=== PATIENT | male | born 1940 | race Caucasian/White ===

== ENCOUNTER 2017-03-22 07:16 | Outpatient (CLI) | payer MEDICARE ==
[~2017-03-22] VITALS: Ht 177.8 cm; Wt 81.8 kg
--- NOTE | ~2017-03-22 | HEMODYNAMI ---
PATIENT:JASON KO MEDICAL RECORD: [id number] : 38 LOCATION:D.CAT ADMISSION DATE: 03/22/17 Generatedon:03/22/20179:41 Patient name: JASON KO Patient #: [id number] SSN: D OB: 1940 Date of study: 03/22/2017 Page: Of Hemodynamic Procedure Report Patient Data Patient Demographics Procedure consent was obtained First Name: JASON Gender: Male Last Name: MAIKEL : 1940 Patient #: [id number] Age: 76 year(s) Race: Unknown Additional ID: [id number] Contact details Address: [address] [place] [address] State: [place] City: [place] Zip code: [address] Past Medical History Allergies: No known allergies Admission Admission Data Admission Date: 03/22/2017 Admission Time: 7:16 Lab Results Lab Result Date: 03/22/2017 Lab Result Time: 0:00 Biochemistry Name Units Result Min Max Creatinine mg/dl 1.3 --(---*)-- 0.6 1.3 CBC Name Units Result Min Max Hemoglobin g/dl 14.1 --(*---)-- 13.5 17.5 Procedure Procedure Types Cath Procedure Diagnostic Procedure [facility] w/Coronaries Miscellaneous Procedures Moderate Sedation up to 15 minutes Procedure Description Procedure Date Procedure Date: 03/22/2017 Procedure Start Time: 9:14 Procedure End Time: 9:40 Procedure Staff Name Function Jose Cruz Michele MD Performing Physician Robert Collins RT Scrub Clarke Spencer RN Nurse Diana Govea RT Monitor Procedure Data Cath Procedure Fluoroscopy Diagnostic fluoroscopy Total fluoroscopy Time: 2 time: 2 min min Diagnostic fluoroscopy Total fluoroscopy dose: 336 dose: 336 mGy mGy Contrast Material Contrast Material Type Amount (ml) Isovue 300 63 Entry Location Entry Primary Successful Side Size Upsize Upsize Entry Closure Succes sful Closure Location (Fr) 1 (Fr) 2 (Fr) Remarks Device Remarks Radial Right 6 Fr artery Short Femoral Right 5 Fr Exoseal artery Estimated blood loss: 5 ml Diagnostic catheters Device Type Used For End Catheter Placement Cordis 5Fr JL 4.0 Left Coronary Catheter (MP) Angiography Cordis 5Fr 3DRC Catheter Right Coronary (MP) Angiography Cordis 5Fr Pigtail LV Angiography Catheter (MP) Procedure Complications No complications Procedure Medications Medication Administration Route Dosage Oxygen NC 2 l/min Benadryl I.V. 50 mg Lidocaine 2% added to field 20 Heparin Flush Bag added to field 2 bags (1000units/500ml NS) 0.9% NaCl I.V. 100 ml/hr Versed I.V. 1 mg Fentanyl I.V. 50 mcg Versed I.V. 1 mg Fentanyl I.V. 50 mcg Hemodynamics Rest Heart Rate: 70 (bpm) Pressure Samples Time Site Value (mmHg) Purpose Heart Use Rate(bpm) 9:31 LV 109/0,12 EDP 66 9:31 AO 146/74(107) Pullback 74 9:31 LV 145/-1,21 Pullback 74 Gradients Valve Time Site 1 Site 2 Mean SEP/DFP Peak To Heart Use (mmHg) (sec/min) Peak Rate (mmHg) (bpm) Aortic 9:31 LV AO 0 17 0 74 145/-1,21 146/74(107) Calculations Valve P-P Mean Valve Index Valve Source Name Gradient Area Flow (cm2) Aortic 0 0 0 0 Snapshots Pre Cath Intra NCS Post Cath Vital Signs Time Heart Resp SPO2 etCO2 [id number] NIBP (mmHg) Rhythm Pain Sedation Rate (ipm) (%) (mmHg) (mmHg) Status Level (bpm) 8:58:34 57 18 99 0 0 165/83(108) NSR 0 (11) 10(A) , No pain 9:02:56 61 17 100 0 0 165/82(106) NSR 0 (11) 10(A) , No pain 9:07:16 74 16 96 0 0 143/76(96) NSR 0 (11) 10(A) , No pain 9:11:36 65 17 94 0 0 139/73(98) NSR 0 (11) 9(A) , No pain 9:15:50 71 24 95 0 0 135/80(98) NSR 0 (11) 9(A) , No pain 9:20:51 64 17 96 0 0 148/75(100) NSR 0 (11) 9(A) , No pain 9:25:07 68 16 94 0 0 129/72(105) NSR 0 (11) 9(A) , No pain 9:29:19 72 15 96 0 0 145/76(106) NSR 0 (11) 9(A) , No pain 9:33:37 71 16 95 0 0 140/72(98) NSR 0 (11) 10(A) , No pain 9:37:53 62 11 95 0 0 147/79(101) NSR 0 (11) 10(A) , No pain Medications Time Medication Route Dose Verified Delivered Reason Notes Effec tiveness by by 8:57:50 Oxygen NC 2 Jose Cruz Buffie used for l/min Ryne Spencer RN procedure 8:58:01 Benadryl I.V. 50 mg Jose Cruz Buffie used for Ryne Spencer RN procedure 8:58:10 Lidocaine 2% added 20ml Jose Cruz Jose Cruz for local to vial Ryne Michele MD anesthetic field 8:58:15 Heparin Flush added 2 Jose Cruz Jose Cruz used for Bag to bags Ryne Michele MD procedure (1000units/500ml field NS) 8:58:29 0.9% NaCl I.V. 100 Jose Cruz Buffie Per ml/hr Ryne Spencer RN physician 9:07:56 Versed I.V. 1 mg Jose Cruz Buffie for Ryne Spencer RN sedation 9:08:02 Fentanyl I.V. 50 Jose Cruz Buffie for mcg Ryne Spencer RN sedation 9:19:11 Versed I.V. 1 mg Jose Cruz Buffie for Ryne Spencer RN sedation 9:19:14 Fentanyl I.V. 50 Jose Cruz Buffie for mcg Ryne Spencer RN sedation Procedure Log Time Note 8:36:29 Robert Collins RT(R) sent for patient. Start room use. 8:36:30 Time tracking: Regular hours 8:36:34 Plan of Care:Hemodynamics will remain stable., Cardiac rhythm will remain stable., Comfort level will be maintained., Respiratory function will remain adequate., Patient/ family verbilizes understanding of procedure., Procedure tolerated without complication., Recovers from procedure without complications.. 8:47:08 Patient received from Pre/Post Procedure Room to [facility] 1 Alert and oriented. Tansferred to table in Supine position. 8:57:16 Warm blankets applied, and susie hugger turned on for patient comfort. 8:57:16 Correct patient and procedure confirmed by team. 8:57:20 Signed procedure consent form obtained from patient. 8:57:21 ECG and BP/O2 sat monitors applied to patient. 8:57:22 Vital chart was started 8:57:26 Rhythm: sinus rhythm 8:57:28 Full Disclosure recording started 8:57:40 H&P Date Dictated: 03/17/2017 Within 30 days and on chart., H&P Addendum completed by physician on day of procedure. (MUST COMPLETE FOR ALL OUTPATIENTS). 8:57:42 Pre-procedure instructions explained to patient. 8:57:43 Pre-op teaching completed and patient verbalized understanding. 8:57:45 Family in waiting room. 8:57:46 Patient NPO since Midnight. 8:57:50 Oxygen 2 l/min NC was administered by Clarke Spencer RN; used for procedure; 8:58:01 Benadryl 50 mg I.V. was administered by Clarke Spencer RN; used for procedure; 8:58:10 Lidocaine 2% 20ml vial added to field was administered by Jose Cruz Michele MD; for local anesthetic; 8:58:14 Patient allergic to No known allergies 8:58:15 Heparin Flush Bag (1000units/500ml NS) 2 bags added to field was administered by Jose Cruz Michele MD; used for procedure; 8:58:16 Is the patient allergic to Iodine/contrast media? No. 8:58:24 Is patient on blood thinner?No 8:58:29 0.9% NaCl 100 ml/hr I.V. was administered by Clarke Spencer RN; Per physician; 8:58:30 Patient diabetic? No. 8:58:34 Previous problem with sedation/anesthesia? No ? 8:58:35 Snore? No 8:58:36 Sleep apnea? No 8:58:37 Deviated septum? No 8:58:43 Opens mouth fully? Yes 8:58:43 Sticks out tongue? Yes 8:58:45 Airway obstruction? No ? 8:58:48 Dentures? No ? 8:58:51 Pre procedure: right dorsailis pedis pulse 2+ Normal; easily identifiable; not easily obliterated 8:58:53 Patient pain scale 0/10 ?. 8:58:59 IV patent on arrival in left hand with 0.9% NaCl at O. 9:01:03 Lab Result : Creatinine 1.3 mg/dl 9:01:03 Lab Result : Hemoglobin 14.1 g/dl 9:01:07 Lab results completed and on chart. 9:01:14 Right Radial & Right Groin area was prepped with chlora-prep and draped in sterile fashion 9:01:15 Alarms reviewed by R. N. 9::15 Sharps counted by scrub and verified by R.N. 9::25 Use device set Radial Dx 9::26 Acist Syringe opened to sterile field. 9:: Medline Cath Pack opened to sterile field. 9:: Bag Decanter opened to sterile field. 9:: St Barry 260cm J .035 wire opened to sterile field. 9::28 Acist Hand Control opened to sterile field. 9::28 Acist Manifold opened to sterile field. 9::29 Tegaderm 4 x 4 opened to sterile field. 9:02:32 Final Timeout: patient, procedure, and site verified with staff and physician. All members of the team are in agreement. 9:02:35 Right Radial site verified by team. 9:02:41 Physical assessment completed. ASA score P 2 - A patient with mild systemic disease as per Jose Cruz Michele MD. 9:02:44 Sedation plan: IV Moderate Sedation Versed, Fentanyl 9:07:56 Versed 1 mg I.V. was administered by Clarke Spencer RN; for sedation; 9:08:02 Fentanyl 50 mcg I.V. was administered by Clarke Spencer RN; for sedation; 9:08:30 Zero performed for pressure channel P1 9:09:05 Baseline sample Acquired. 9:14:36 Procedure started. 9:14:46 Local anesthetic to right radial artery with Lidocaine 2% by Jose Cruz Michele MD.INITIAL ACCESS ONLY 9:15:31 A 6 Fr Short sheath was inserted into the Right Radial artery 9:18:02 Terumo 5Fr Wadsworth Sheath opened to sterile field. 9:18:11 Use device set Multipack Set 9:18:13 Diagnostic Infinity 5Fr Multipack catheter opened to sterile field. 9:19:11 Versed 1 mg I.V. was administered by Clarke Spencer RN; for sedation; 9:19:14 Fentanyl 50 mcg I.V. was administered by Clarke Spencer RN; for sedation; 9:20:40 Local anesthetic to right femoral artery with Lidocaine 2% by Jose Cruz Michele MD.ADDITIONAL ACCESS 9:21:19 A 5 Fr sheath was inserted into the Right Femoral artery 9:23:17 A Cordis 5Fr JL 4.0 Catheter (MP) was advanced over the wire and used for Left Coronary Angiography. 9:25:28 Catheter removed. 9:26:15 A Cordis 5Fr 3DRC Catheter (MP) was advanced over the wire and used for Right Coronary Angiography. 9:27:29 Catheter removed. 9:29:46 A Cordis 5Fr Pigtail Catheter (MP) was advanced over the wire and used for LV Angiography. 9:31:22 LV gram done using ARAUJO 9:31:23 LV hemodynamics recorded. 9:31:26 Injector settings: Ml/sec: 10, Volume: 20, 9::31 EF : 65 % 9:31:55 Catheter removed. 9:32:51 Cordis 5Fr Exoseal opened to sterile field. 9:33:12 Sheath removed intact; hemostasis achieved with Exoseal to the Right Femoral artery. 9:33:14 Procedure ended.(Physican Out) 9:33:18 Fluoroscopy time 02.00 minutes. 9:33:24 Fluoroscopy dose: 336 mGy 9:33:24 Flurop Dose total: 336 9:33:27 Contrast amount:Isovue 300 63ml. 9:33:29 Sharps counted by scrub and verified by R.N. 9:33:32 Insertion/operative site no bleeding no hematoma. 9:33:36 Post-op/insertion site Right Radial artery dressed using a 4 x 4 and Tegaderm. 9:33:40 Post right femoral artery:stable, clean and dry 9:33:49 Post Procedure Pulses reassessed and unchanged 9:34:19 Post-procedure physical assessment completed. ASA score P 2 - A patient with mild systemic disease as per Jose Cruz Michele MD. 9:34:22 Post procedure rhythm: unchanged. 9:34:24 Estimated blood loss: 5 ml 9:34:26 Post procedure instruction explained to patient.Patient verbalizes understanding. :34:26 Patient needs reinforcement of post procedure teaching. 9:34:38 Procedure type changed to Cath procedure, Diagnostic procedure, LHC, LHC w/Coronaries, Miscellaneous Procedures, Moderate Sedation up to 15 minutes 9:34:53 Merit Prelude 6Fr Radial Sheath (NO COST SUPPLY) opened to sterile field. 9:35:24 Procedure Complication : No complications 9:36:34 See physician's report for complete and final results. 9:38:51 Procedure and supply charges have been captured, reviewed, submitted and are correct. 9:38:52 Vital chart was stopped 9:39:58 Report given to Pre/Post Procedure Room. 9:40:02 Patient transfered to Pre/Post Procedure Room with Stretcher. 9:40:37 Procedure ended. 9:40:37 Full Disclosure recording stopped 9:41:41 End room use (Document Last) Device Usage Item Name Manufacture Quantity Catalog Hospital Part Current Minimal Lot# / Number Charge Number Stock Stock Serial# Code Acist Acist 1 70224 [id number] 020940 [id number] 20 Syringe [employer] Inc Medline Cardinal 1 [id number] 33933 055796 5 Cath Pack Health Bag Microtek 1 2002S 977450 94182 708278 [address] St Barry 1 [id number] 474754 581317 984854 30 260cm J .035 wire Acist Hand Acist 1 25076 621418 902377 208521 5 Control [employer] Inc Acist Acist 1 89285 139190 042221 805443 5 Manifold [employer] Inc Tegaderm 4 3M 1 1626W 453016 589529 727582 5 x 4 Terumo 5Fr Terumo 1 [id number] 497636 097714 487935 40 Wadsworth Sheath Diagnostic Cardinal 1 [id number] 284958 69955 054834 30 Infinity Health 5Fr Multipack catheter Cordis 5Fr Cardinal 1 620923 5 JL 4.0 Health Catheter (MP) Cordis 5Fr Cardinal 1 [id number] 5 3DRC Health Catheter (MP) Cordis 5Fr Cardinal 1 [id number] 5 Pigtail Health Catheter (MP) Cordis 5Fr Cardinal 1 [id number] 413301 317470 031889 10 Exoseal Health Merit Merit 1 [id number] 281278 806260 5 Prelude Medical 6Fr Radial Sheath (NO COST SUPPLY) Signature Audit [place] Stage Time Signature Unsigned Intra-Procedure 03/22/2017 Diana 9:41:50 AM Counts RT(R) Signatures Monitor : Diana Signature : Counts RT Date : Time : [address] [address]
[2017-03-22] MEDS ORDERED: BAYER CHEWABLE81 MG PO (07:33)
[2017-03-22] MEDS ORDERED: PROSCAR5 MG PO (07:33)
[2017-03-22] MEDS ORDERED: MULTIPLE VITAMI1 TA1 PO (07:34)
[2017-03-22 07:42] VITALS: BP 168/84; Ht 177.8 cm; Wt 81.8 kg
[2017-03-22 08:06] LABS: BASOPHILS 1.5 % (0-2); EOSINOPHILS 5.4 % (0-7); HEMATOCRIT 40.7 % (42.0-54.0); HEMOGLOBIN 14.1 g/dL (13.5-17.5); IMMATURE GRANULOCYTES 0.1 % (0-5); LYMPHOCYTES 25.2 % (15-50); MCH 34.2 pg (26.0-34.0); MCHC 34.6 g/dL (31.0-37.0); MCV 98.8 fL (80.0-100.0); MEAN PLATELET VOLUME 9.8 fL (7.4-10.4); MONOCYTES 7.4 % (2-11); NEUTROPHILS 60.4 % (40-80); PLATELET COUNT 255 10x3/uL (130-400); RBC 4.12 10x6/uL (4.20-6.10); RDW 13.2 % (11.5-14.5)
[2017-03-22 08:18] LABS: ANION GAP 11.7 mmol/L (8-16); CALCIUM 8.5 mg/dL (8.5-10.1); CARBON DIOXIDE 26.5 mmol/L (21.0-32.0); CREATININE - SERUM 1.3 mg/dL (0.6-1.3); POTASSIUM - SERUM 4.2 mmol/L (3.5-5.1)
--- NOTE | 2017-03-22 10:01 | NUR ---
0912 RECEIVED PT FROM [employer] [employer], SEE ADMIT ASSESSMENT. PT IS DROWSY, AWAKENS EASILY TO VERBAL STIMULI. DENIES ANY C/O PAIN OR NAUSEA. BANDAID TO RIGHT WRIST IS CDI, NO BLEEDING OR HEMATOMA NOTED. HAND IS WARM, CAP REFILL IS BRISK, PULSES STRONG AND REGULAR. EXOSEAL DRESSING TO RIGHT GROIN IS CDI, AREA SOFT AND NONTENDER. PEDAL PULSES PALPABLE, TOES WARM, CAP REFILL IS BRISK. NSR ON MONITOR, DENIES ANY C/O CHEST DISCOMFORT. CALL LIGHT IN REACH. PT INSTRUCTED TO CALL FOR NEEDS. DR WHITE SPEAKING WITH FAMILY. [id number] AT BEDSIDE.
--- NOTE | 2017-03-22 10:05 | NUR ---
1005- PO FLUIDS SERVED, PT DIPIKA WITH NO C/O NAUSEA. CATH SITES TO RIGHT WRIST AND RIGHT GROIN ARE FREE FROM BLEEDING/HEMATOMA. AT BEDSIDE. PT DENIES NEEDS AT THIS TIME. CALL LIGHT IN REACH.
--- NOTE | 2017-03-22 10:43 | NUR ---
1040 DRESSINGS REMAIN CDI, NO BLEEDING OR HEMATOMA AT EITHER SITE. CAP REFILL AND PULSES PRESENT TO RIGHT HAND AND RIGHT FOOT. PT DIPIKA PO FLUIDS WITH NO C/O NAUSEA. SANDWICH AT BEDSIDE. NSR, RATE IS 60, PT DENIES ANY CHEST DISCOMFORT. AT BEDSIDE.
--- NOTE | 2017-03-22 11:03 | NUR ---
1100 DRESSINGS REMAINS CDI, PT DENIES ANY C/O PAIN OR NAUSEA. IV PATENT. DIPIKA PO FLUIDS, VSS. AT BEDSIDE.
--- NOTE | 2017-03-22 11:35 | NUR ---
1130 VSS, RESP WITH EASE. DRESSINGS REMAIN CDI, PEDAL AND RADIAL PULSES PALPABLE. PT DIPIKA PO FLUIDS, DENIES ANY C/O. AT BEDSIDE. CALL LIGHT IN REACH.
--- NOTE | 2017-03-22 12:10 | NUR ---
1200 HOB ELEVATED TO 45 DEGRESS. DRESSINGS REMAIN CDI, NO BLEEDING OR HEMATOMA NOTED. PT EATING SANDWICH. AT BEDSIDE. PT HAS VOIDED 400 CC CLEAR YELLOW URINE USING URINAL. DENIES ANY C/O AT THIS TIME.
--- NOTE | 2017-03-22 12:20 | NUR ---
1220 PT HAS TOLERATED SANDWICH WITH NO C/O NAUSEA. IV DC'D WITH CAth INTACT. REVIEWED DC INSTRUCTIONS WITH PT AND WHO VERBALIZE UNDERSTANDING. PT DRESSING FOR DC TO HOME. GROIN AND WRIST DRESSINGS REMAIN STABLE WITH NO BLEEDING OR HEMATOMA NOTED. PT DENIES ANY C/O.
--- NOTE | 2017-03-22 12:52 | NUR ---
1235 PT ESCORTED TO PRIVATE AUTO VIA WC BY NURSE WITH DRIVING HIM HOME. PT DENIES ANY C/O UPON DC.
== END 2017-03-22 12:35 | disposition home or self-care (01) ==
LOC: D.CATH 07:16
PROVIDERS: Internal Medicine Cardiovascular Disease
DX: I20.9 Angina pectoris, unspecified (principal); R94.31 Abnormal electrocardiogram [ECG] [EKG]; R06.00 Dyspnea, unspecified; Z01.812 Encounter for preprocedural laboratory examination

== ENCOUNTER → 2018-08-29 14:03 | Outpatient (CLI) | payer OTHER ==
[2017-03-22 07:42] VITALS: BMI 25.8
[~2018-08-29 14:03] MED LIST: BAYER CHEWABLE81 MG PO; MULTIPLE VITAMI1 TA1 PO; PROSCAR5 MG PO
== END | disposition home or self-care (01) ==
LOC: D.CT 14:03
DX: R42 Dizziness and giddiness (principal)